=== PATIENT | female | born 1930 | race Hispanic/Latino ===

== ENCOUNTER → 2018-11-30 | Outpatient (CLI) | payer MEDICARE ==
[~2018-11-30] MED LIST: LISI-617 PO; LORA10CA9 PO; TRAM50TA2 PO
== END | disposition home or self-care (01) ==
LOC: RAH 15:20
PROVIDERS: ATTEND Internal Medicine Hematology & Oncology
DX: M79.89 Other specified soft tissue disorders (principal); C51.8 Malignant neoplasm of overlapping sites of vulva; N18.3 Chronic kidney disease, stage 3 (moderate)
CPT/HCPCS: 93971

== ENCOUNTER 2019-09-26 09:59 | Observation (INO) | payer MEDICARE ==
[~2019-09-26] VITALS: Ht 149.9 cm; Wt 45.8 kg
[~2019-09-26 09:59] MED LIST changes: +APIX5TAB PO; +CLIN300C9 PO; -LORA10CA9 PO; -TRAM50TA2 PO
[2019-09-26 10:26] LABS: BASOPHILS % (AUTO) 0.4 % (0.0-5.0); EOSINOPHILS % (AUTO) 1.4 % (0.0-8.0); HEMATOCRIT 35.3 % (36-48); LYMPHOCYTES % (AUTO) 11.5 % (21.0-51.0); MEAN CORPUSCULAR HEMOGLOBIN 29.7 pg (27.0-33.0); MEAN CORPUSCULAR HGB CONC 31.4 g/dL (32.0-36.0); MEAN CORPUSCULAR VOLUME 94.4 fL (79-99); MONOCYTES % (AUTO) 8.4 % (3.0-13.0); NEUTROPHILS % (AUTO) 77.9 % (40.0-77.0); PLATELET COUNT (AUTO) 302 K/uL (130-400); RED BLOOD CELL COUNT(AUTO) 3.74 MIL/uL (4.00-5.50); RED CELL DISTRIBUTION WIDTH 15.4 % (11.0-15.5); WHITE BLOOD COUNT (AUTO) 8.1 K/uL (4.8-10.8)
[2019-09-26 10:36] LABS: CREATININE 1.2 mg/dL (0.5-1.5); POTASSIUM 4.2 mmol/L (3.5-5.1)
[2019-09-26 10:40] LABS: INR 1.02 (0.85-1.15); PARTIAL THROMBOPLASTIN TIME 29.6 SEC (26.3-35.5); PROTHROMBIN TIME 10.7 SEC (9.6-11.6)
[2019-09-26 10:42] LABS: ALBUMIN 3.3 g/dL (3.5-5.0); BILIRUBIN,TOTAL 0.3 mg/dL (0.2-1.0); TOTAL PROTEIN, SERUM 7.3 g/dL (6.0-8.3)
[2019-09-26] MEDS ORDERED: IOHEXOL-350 75 ML VIAL IV ONE (11:17)
[2019-09-26 14:30] LABS: APPEARANCE,URINE Clear (CLEAR); BILIRUBIN,URINE Negative (NEGATIVE); COLOR,URINE Yellow (YELLOW); GLUCOSE, URINE (UA) Negative (NEGATIVE); KETONES,URINE Trace mg/dL (NEGATIVE); LEUKOCYTE ESTERASE ,URINE Negative (NEGATIVE); NITRATE,URINE Negative (NEGATIVE); OCCULT BLOOD,URINE Negative (NEGATIVE); PROTEIN,URINE Negative (NEGATIVE); UROBILINOGEN,URINE 0.2 mg/dL (0.2-1.0)
[2019-09-26] MEDS ORDERED: SODIUM CHLORIDE 0.9% 1000ML 1,000 ML IV SCH (14:30)
[2019-09-26] MEDS ORDERED: ACETAMINOPHEN 325 MG TAB PO PRN (14:30)
[2019-09-26 15:08] LABS: BACTERIA,URINE None Seen /HPF (None Seen); MUCUS,URINE Few LPF (None Seen); RBC,URINE 0-1 /HPF (0-1); WBC,URINE 0-1 /HPF (0-1)
[2019-09-26 16:54] VITALS: BP 140/72
[2019-09-26] MEDS: ENOXAPARIN SODIUM 60 MG/0.6 ML SQ SCH (18:40)
[2019-09-26] MEDS ORDERED: LISI-617 PO (19:26)
[2019-09-26 20:15] VITALS: BP 157/79
[2019-09-27 00:04] VITALS: BP 146/68
[2019-09-27 04:28] VITALS: BP 159/69
[2019-09-27] MEDS: ENOXAPARIN SODIUM 60 MG/0.6 ML SQ SCH (05:40)
[2019-09-27 07:38] VITALS: BP 148/75
[2019-09-27 11:03] VITALS: BP 155/69
--- NOTE | 2019-09-27 16:00 | NUR ---
DC'd home to prior living circumstance. Removed IV from R ac intact; noted excessive bleeding from site after removal even with gauze pressure dressing; applied direct pressure to site x 15 minutes-no further bleeding. Notified pt. to follow up with doctor's office in am for f/u appt; discussed SS of DVT. To continue same medications per Dr. Orellana (eliquis and lisinopril) from home. No questions or complaints.
--- NOTE | 2019-09-27 16:06 | NUR ---
INITIAL Patient lives with sister. Emergency contact is Terri marie,[phone]. No home health. PHC X 24.5 hours a week. Patient does not remember the name of agency. DME: cane, wheelchair, BPM, walker with seat. Patient needs help with ADL's and does not drive. PCP is Dr. Winnie Feliz. Pharmacy is [facility] located on [address]. DCP is home. Addendum: 09/27/19 at 1611 by MARY GOLDBERG SS Amended: Links added.
== END 2019-09-27 16:10 | disposition home or self-care (01) ==
LOC: EDH 09:59 → EDHIP 13:50 → INTOOBSV 13:50 → 3CH 16:43
PROVIDERS: ADMIT Internal Medicine Hematology & Oncology; ATTEND Internal Medicine Hematology & Oncology
DX: I82.411 Acute embolism and thrombosis of right femoral vein (principal); I89.0 Lymphedema, not elsewhere classified; C52 Malignant neoplasm of vagina
CPT/HCPCS: 36415; 71045; 74177; 80053; 81001; 82550; 84484 ×2; 85025; 85610; 85730; 87040; 93005; 93971; 96372 ×2; 99285; G0378 ×12; J1650 ×2; Q9967